=== PATIENT | male | born 1965 | race Caucasian/White ===

== ENCOUNTER 2018-03-30 11:30 | Inpatient (IN) | payer OTHER ==
[2018-03-30 11:55] VITALS: BMI 28.3
--- NOTE | 2018-03-30 15:25 | HP ---
CIWA Score - CIWA Score Nausea/Vomitin-Int. Nausea w/Dry Heave Muscle Tremors: 7-Severe,w/o Arm Extended Anxiety: 4-Mod. Anxious/Guarded Agitation: 4-Moderately Restless Paroxysmal Sweats: 4-Forehead w/Sweat Beads Orientation: 0-Oriented Tacttile Disturbances: 0-None Auditory Disturbances: 0-None Visual Disturbances: 0-None Headache: 2-Mild CIWA-Ar Total Score: 25 Admission ROS S - HPI Chief Complaint: Here for alcohol withdrawal. Allergies/Adverse Reactions: Allergies Allergy/AdvReac Type Severity Reaction Status Date / Time No Known Allergies Allergy Verified 03/30/18 12:53 History of Present Illness: Alcohol use began at age 16. States tried detoxing at home and was taking illicit benzo to assist in detox. Denies usually taking benzos. Hx blackouts. unsure if ever had seizures. Longest period of sobriety was 14 months, which ended in July 2017. Denies significant PMH. Hx depression and on meds. Denies thoughts of harming self. Search Terms: Josue Silva, 1965 Search Date: 03/30/2018 03:17:40 PM The Drug Utilization Report below displays all of the controlled substance prescriptions, if any, that your patient has filled in the last twelve months. The information displayed on this report is compiled from pharmacy submissions to the Department, and accurately reflects the information as submitted by the pharmacies. This report was requested by: Kallie Astorga | Reference #: [id number] There are no results for the search terms that you entered. Exam Limitations: No Limitations - Ebola screening Have you traveled outside of the country in the last 21 days: No (N) Have you had contact with anyone from an Ebola affected area: No Have you been sick,other than usual withdrawal symptoms: No Do you have a fever: No - Review of Systems Constitutional: Diaphoresis, Changes in sleep (Difficulty staying asleep) EENT: reports: Dental Problems (No removable bridge. No problems chewing.) Respiratory: reports: Cough (States smoker's cough. Denies difficulty breathing or SOB.), Other (Hx PPD (+). No medication treatment) Cardiac: reports: No Symptoms Reported GI: reports: Diarrhea (Soft and watery diarrhea x 1 week.), Nausea, Other (Has been drinking and not eating) : reports: No Symptoms Reported Musculoskeletal: reports: No Symptoms Reported Integumentary: reports: Erythema (3 red patches (L) chest x 2 weeks. No itching) Neuro: reports: Headache, Tremors Endocrine: reports: No Symptoms Reported Hematology: reports: No Symptoms Reported Psychiatric: reports: Judgement Intact, Orientated x3, Agitated, Anxious, Depressed (Denies thoughts of harming self or others.) Patient History - Patient Medical History Hx Anemia: No Hx Asthma: No Hx Chronic Obstructive Pulmonary Disease (COPD): No Hx Cardiac Disorders: No Hx Congestive Heart Failure: No Hx Hypertension: No Hx Hypercholesterolemia: No Hx Pacemaker: No HX Cerebrovascular Accident: No Hx Seizures: No (does not recollect having a seizure) Hx Dementia: No Hx Diabetes: No Hx Gastrointestinal Disorders: No Hx Liver Disease: No Hx Genitourinary Disorders: No Hx Sexually Transmitted Disorders: No Hx Renal Disease (ESRD): No Hx Thyroid Disease: No Hx Human Immunodeficiency Virus (HIV): No Hx Hepatitis C: No Hx Depression: Yes Hx Suicide Attempt: No Hx Bipolar Disorder: No Hx Schizophrenia: No - Patient Surgical History Past Surgical History: Yes Hx Neurologic Surgery: No Hx Cataract Extraction: No Hx Cardiac Surgery: No Hx Lung Surgery: Yes (chest tube/left pneumothorax at age 17) Hx Breast Surgery: No Hx Breast Biopsy: No Hx Abdominal Surgery: No Hx Appendectomy: No Hx Cholecystectomy: No Hx Genitourinary Surgery: No Hx Section: Yes (fx, right ankle in 2011/left ankle in 2004) Hx Orthopedic Surgery: No Anesthesia Reaction: No - PPD History Documented Results: Positive w/o proof - Smoking Cessation Smoking history: Current every day smoker Have you smoked in the past 12 months: Yes Aproximately how many cigarettes per day: 20 Cigars Per Day: 0 Hx Chewing Tobacco Use: No Initiated information on smoking cessation: Yes 'Breaking Loose' booklet given: 03/30/18 - Substance & Tx. History Hx Alcohol Use: Yes Hx Substance Use: Yes Substance Use Type: Alcohol Hx Substance Use Treatment: Yes (several detoxes and residential programs) - Substances Abused Alcohol Route: Oral Frequency: Daily Amount used: 1 quart of vodka, 1 case of beers 12 ouces Age of first use: 16 Date of Last Use: 03/30/18 Marijuana/Hashish Route: Smoking Frequency: Daily Amount used: $10 Age of first use: 16 Date of Last Use: 03/29/18 Alprazolam (Xanax) Route: Oral Frequency: 1-3 times last 30 days Amount used: 0.5mg Age of first use: 53 (Only used last 2 weeks) Date of Last Use: 03/29/18 Family Disease History - Family Disease History Family Disease History: Respiratory: Mother (copd - ), Other: Brother ( htn, etoh dep. ) Admission Physical Exam [facility] - Vital Signs Vital Signs: Vital Signs - 24 hr 03/30/18 11:54 Temperature 97.4 F L Pulse Rate 104 H Respiratory 19 Rate Blood Pressure 137/91 - Physical General Appearance: Yes: Mild Distress, Tremorous, Irritable, Sweating, Anxious HEENTM: Yes: EOMI, Normocephalic, Normal Voice, JORGE Respiratory: Yes: Chest Non-Tender, Lungs Clear, Normal Breath Sounds Neck: Yes: No masses,lesions,Nodules, Supple Breast: Yes: Breast Exam Deferred Cardiology: Yes: Regular Rhythm, S1, S2, Tachycardia Abdominal: Yes: Non Tender, Soft, Increased Bowel Sounds Genitourinary: Yes: Within Normal Limits Back: Yes: Normal Inspection Musculoskeletal: Yes: full range of Motion, Gait Steady Extremities: Yes: Normal Capillary Refill, Non-Tender, Tremors (gross tremors of hands at rest and increases w/ extension), Other (Old surgical scar (R) ankle.) 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, Fully Oriented, Alert, Motor Strength 5/5 Integumentary: Yes: Rash (Group of 3 elevated, irregular shaped erythematous lesions at (L) lower breast/chest area total size approx 3") Lymphatic: Yes: Within Normal Limits - Diagnostic (1) Alcohol dependence with uncomplicated withdrawal Current Visit: Yes Status: Acute (2) Nicotine dependence Current Visit: Yes Status: Chronic Qualifiers: Nicotine product type: cigarettes Substance use status: uncomplicated Qualified Code(s): F17.210 - Nicotine dependence, cigarettes, uncomplicated (3) Fungal rash of torso Current Visit: Yes Status: Acute Cleared for Admission [facility] - Detox or Rehab [facility] Level of Care: Medically Managed Detox Regimen/Protocol: Librium S Breath Alcohol Content Breath Alcohol Content: 0.097 Urine Drug Screen - Results Drug Screen Negative: No Urine Drug Screen Results: BZO-Benzodiazepines
[2018-03-30] MEDS ORDERED: P-EPHED 60MG/TRIPROLIDI 2.5MG TABLET PO PRN (16:02)
[2018-03-30] MEDS ORDERED: chlordiazePOXIDE HCL 25 MG CAPSULE PO PRN (16:02)
[2018-03-30] MEDS ORDERED: guaiFENesin/D-METHORPHAN HB 10 ML UNIT-DOSE CUPS PO PRN (16:02)
[2018-03-30] MEDS ORDERED: MENTHOL/PHENOL 1 EACH UD MM PRN (16:02)
[2018-03-30] MEDS ORDERED: NICOTINE POLACRILEX 2 MG GUM BC PRN (16:02)
[2018-03-30] MEDS ORDERED: ACETAMINOPHEN 325 MG TABLET (FP) PO PRN (16:02)
[2018-03-30] MEDS ORDERED: MAG HYDROX/AL HYDROX/SIMETH 30 ML UNIT-DOSE CUP PO PRN (16:02)
[2018-03-30] MEDS ORDERED: hydrOXYzine PAMOATE 50 MG CAPSULE (FP) PO PRN (16:02)
[2018-03-30] MEDS ORDERED: MAGNESIUM HYDROX 2400MG/30ML ORAL SUSPENSION 30 ML CUP PO PRN (16:02)
[2018-03-30] MEDS ORDERED: MAGNESIUM CITRATE 300 ML BOTTLE PO PRN (16:02)
[2018-03-30] MEDS ORDERED: LOPERAMIDE HCL 2 MG CAPSULE PO PRN (16:02)
[2018-03-30] MEDS ORDERED: IBUPROFEN 400 MG TABLET (FP) PO PRN (16:02)
[2018-03-30] MEDS ORDERED: chlordiazePOXIDE HCL 25 MG CAPSULE PO ONE (16:30)
[2018-03-30] MEDS: chlordiazePOXIDE HCL 25 MG CAPSULE PO SCH ×2 (17:45→22:20)
[2018-03-30] MEDS: NICOTINE 21 MG/24 HOURS TOPICAL PATCH TD SCH (17:45)
[2018-03-30 21:25] LABS: URINE APPEARANCE CLEAR; URINE BILIRUBIN NEGATIVE (<2.0 mg/dL); URINE COLOR STRAW; URINE GLUCOSE (UA) NEGATIVE (NEGATIVE); URINE KETONE NEGATIVE (NEGATIVE); URINE LEUK ESTERASE NEGATIVE (NEGATIVE); URINE NITRITE NEGATIVE (NEGATIVE); URINE PROTEIN NEGATIVE (NEGATIVE); URINE UROBILINOGEN NEGATIVE mg/dL (0.2-1.0)
[2018-03-30] MEDS ORDERED: MELATONIN 5 MG TABLETS PO PRN (22:00)
[2018-03-30] MEDS: CLOTRIMAZOLE 1% CREAM 15 GM TUBE TP SCH (22:17)
[2018-03-30] MEDS: THIAMINE HCL 100 MG TABLET (FP) PO SCH (22:19)
[2018-03-31] MEDS: chlordiazePOXIDE HCL 25 MG CAPSULE PO SCH ×4 (05:53→22:40)
--- NOTE | 2018-03-31 08:56 | CONSULT ---
[facility] Psychiatric Consult - Data Date of interview: 03/31/18 Admission source: [facility] Identifying data: Patient is a 53 year old single male, father of three, unemployed, and domiciled. This is one of multiple admissions for patient. Pt. admitted to for alcohol dependence. Substance Abuse History: Smoking Cessation. Smoking history: Current every day smoker. Have you smoked in the past 12 months: Yes. Aproximately how many cigarettes per day: 20. Cigars Per Day: 0. Hx Chewing Tobacco Use: No. Initiated information on smoking cessation: Yes. 'Breaking Loose' booklet given : 03/30/18. - Substance & Tx. History. Hx Alcohol Use: Yes. Hx Substance Use : Yes. Substance Use Type: Alcohol. Hx Substance Use Treatment: Yes (several detoxes and residential programs). - Substances Abused. Alcohol. Route: Oral. Frequency: Daily. Amount used: 1 quart of vodka, 1 case of beers 12 ouces. Age of first use: 16. Date of Last Use: 03/30/18. Marijuana/ Hashish. Route: Smoking. Frequency: Daily. Amount used: $10. Age of first use: 16. Date of Last Use: 03/29/18. Alprazolam (Xanax). Route: Oral. Frequency: 1-3 times last 30 days. Amount used: 0.5mg. Age of first use: 53 ( Only used last 2 weeks). Date of Last Use: 03/29/18 Medical History: chest tube/left pneumothorax at age 17, fx, right ankle in 2011 /left ankle in 2004 Psychiatric History: Patient denies h/o psychiatric hospitalization. He was provided psychiatric services at [facility] rehab in 2015 and was prescribed prozac + trazodone. Upon discharge at [facility] patient was accepting prozac 60mg + trazodoe 100mg qhs. In 2017, Patient was receiving outpatient psychiatric services on [facility] in [place], [place] and was maintained on prozac 60mg + trazodone 100mg. Pt currently receives his psychotrophic medications from his PCP. Reports most recently taking prozac 40mg (reduce dosage due to limited pills) and has been compliant with trazodone 100mg. Pt. denies h/o suicide attempt. Physical/Sexual Abuse/Trauma History: denies. Mental Status Exam - Mental Status Exam Alert and Oriented to: Time, Place, Person Cognitive Function: Good Patient Appearance: Well Groomed Mood: Euthymic Affect: Appropriate Patient Behavior: Appropriate, Cooperative Speech Pattern: Appropriate Voice Loudness: Normal Thought Process: Intact, Goal Oriented Thought Disorder: Not Present Hallucinations: Denies Suicidal Ideation: Denies Homicidal Ideation: Denies Insight/Judgement: Poor Sleep: Poorly Appetite: Fair Muscle strength/Tone: Normal Gait/Station: Normal Psychiatric Findings - Problem List ([place] 1, 2,3) (1) Alcohol dependence with uncomplicated withdrawal Status: Acute (2) Nicotine dependence Status: Chronic Qualifiers: Nicotine product type: cigarettes Substance use status: in withdrawal Qualified Code(s): F17.213 - Nicotine dependence, cigarettes, with withdrawal (3) Substance induced mood disorder Status: Acute (4) Substance-induced sleep disorder Status: Acute - Initial Treatment Plan Initial Treatment Plan: Psychoeducation provided. Detoxification in progress. Will order prozac 40mg + trazodone 100mg qhs. Benefits and side effects discussed. Pt. made aware of the risk of priapism when accepting trazodone. Verbal consent given.
[2018-03-31 09:48] LABS: HEMATOCRIT 46.6 % (35.4-49); HEMOGLOBIN 15.1 GM/dL (11.7-16.9); MCH 30.8 pg (25.7-33.7); MCHC 32.3 g/dl (32.0-35.9); MEAN CELL VOLUME 95.2 fl (80-96); MEAN PLT VOLUME 8.9 fl (7.5-11.1); PLATELET COUNT 153 K/MM3 (134-434); RBC 4.89 M/mm3 (4.00-5.60); RDW 14.7 % (11.9-15.9); WHITE BLOOD COUNT 11.2 K/mm3 (4.0-10.0)
[2018-03-31 09:59] LABS: BLOOD UREA NITROGEN 5 mg/dL (7-18); CHLORIDE 103 mmol/L (98-107); SODIUM 142 mmol/L (136-145)
[2018-03-31] MEDS ORDERED: PRENATAL VITAMINS W/ FOLIC ACID TABLET (FP) PO SCH (10:00)
[2018-03-31] MEDS ORDERED: FLUoxetine HCL 20 MG CAPSULE (FP) PO SCH (10:00)
[2018-03-31 10:04] LABS: ALBUMIN 2.6 g/dl (3.4-5.0); ALK PHOS 73 U/L (45-117); ANION GAP 11 MMOL/L (8-16); BILIRUBIN,TOTAL 0.8 mg/dL (0.2-1.0); CALCIUM 8.2 mg/dL (8.5-10.1); CO2 28 mmol/L (21-32); CREATININE 0.7 mg/dL (0.7-1.3); GLUCOSE,RANDOM 92 mg/dL (74-106); SGOT/AST 33 U/L (15-37); SGPT/ALT 30 U/L (12-78); TOT PROT 5.7 g/dl (6.4-8.2)
[2018-03-31] MEDS: NICOTINE 21 MG/24 HOURS TOPICAL PATCH TD SCH (10:18)
[2018-03-31] MEDS: CLOTRIMAZOLE 1% CREAM 15 GM TUBE TP SCH ×2 (10:19→22:35)
--- NOTE | 2018-03-31 10:57 | PN ---
S CIWA - CIWA Score Nausea/Vomitin-No Nausea/No Vomiting Muscle Tremors: 4-Moderate,w/Arms Extend Anxiety: 4-Mod. Anxious/Guarded Agitation: 4-Moderately Restless Paroxysmal Sweats: 1-Minimal Palms Moist Orientation: 0-Oriented Tacttile Disturbances: 0-None Auditory Disturbances: 0-None Visual Disturbances: 0-None Headache: 0-None Present CIWA-Ar Total Score: 13 [facility] Progress Note (SOAP) Subjective: C/O SWEATS,TREMORS,FATIGUE. Objective: 03/31/18 10:56 Vital Signs 03/31/18 03/31/18 03/31/18 03:30 06:04 09:10 Temperature 97.7 F 97.5 F L Pulse Rate 79 111 H Respiratory 18 18 20 Rate Blood Pressure 134/78 126/93 Laboratory Tests 03/30/18 03/31/18 03/31/18 16:47 07:30 07:30 WBC 11.2 H RBC 4.89 Hgb 15.1 Hct 46.6 MCV 95.2 MCH 30.8 MCHC 32.3 RDW 14.7 Plt Count 153 D MPV 8.9 Sodium 142 Potassium 3.0 L Chloride 103 Carbon Dioxide 28 Anion Gap 11 BUN 5 L Creatinine 0.7 Creat Clearance w eGFR > 60 Random Glucose 92 Calcium 8.2 L Total Bilirubin 0.8 AST 33 D ALT 30 D Alkaline Phosphatase 73 Total Protein 5.7 L Albumin 2.6 L Urine Color Straw Urine Appearance Clear Urine pH 6.0 D Ur Specific Dequincy 1.001 Urine Protein Negative Urine Glucose (UA) Negative Urine Ketones Negative Urine Blood Negative Urine Nitrite Negative Urine Bilirubin Negative Urine Urobilinogen Negative Ur Leukocyte Esterase Negative K+ = 3.0 Assessment: 03/31/18 10:56 WITHDRAWAL SX HYPOKALEMIA Plan: CONTINUE DETOX KCL LIQ 20 MEQ PO NOW, THEN BID
[2018-03-31] MEDS ORDERED: POTASSIUM CHLORIDE ORAL LIQUID 20 MEQ/15 ML PO ONE (11:01)
--- NOTE | 2018-03-31 14:17 | EKG ---
Test Reason : Blood Pressure : / mmHG Vent. Rate : 106 BPM Atrial Rate : 106 BPM P-R Int : 146 ms QRS Dur : 082 ms QT Int : 350 ms P-R-T Axes : 058 045 047 degrees QTc Int : 464 ms POOR DATA QUALITY, INTERPRETATION MAY BE ADVERSELY AFFECTED SINUS TACHYCARDIA OTHERWISE NORMAL ECG NO PREVIOUS ECGS AVAILABLE Confirmed by ANDRY JOHNS MD ([id number]) on 03/31/2018 2:17:36 PM Referred By: Confirmed By:ANDRY JOHNS MD
[2018-03-31 17:24] VITALS: BP 124/72; PULSE 86; TEMP 97
--- NOTE | 2018-03-31 18:40 | PN ---
[facility] Progress Note Note: Patient bowel movement w/ expulsion of bright red blood and large amount of blood clots. Denies hx of past bleeding. Abdomen soft and non-tender. Bowel sounds (+). Patient continues w/ severe tremors. Denies significant PMH. Hx. depression. Dr. Wall, at [facility], notified of patient being sent via ambulance. Vital Signs - 24 hr 03/30/18 03/31/18 03/31/18 21:34 00:30 03:30 Temperature 100.7 F H Pulse Rate 119 H Respiratory 20 18 18 Rate Blood Pressure 148/97 03/31/18 03/31/18 03/31/18 06:04 09:10 13:11 Temperature 97.7 F 97.5 F L 98.3 F Pulse Rate 79 111 H 105 H Respiratory 18 20 20 Rate Blood Pressure 134/78 126/93 138/90 03/31/18 17:23 Temperature 97 F L Pulse Rate 86 Respiratory 18 Rate Blood Pressure 124/72 Current Medications Generic Name Dose Route Start Last Admin Trade Name Freq PRN Reason Stop Dose Admin Acetaminophen 650 mg 03/30/18 16:02 03/30/18 22:18 Tylenol - PO 650 mg Q4H PRN Administration FEVER Al Hydroxide/Mg Hydroxide 30 ml 03/30/18 16:02 Mylanta Oral Suspension - PO Q6H PRN DYSPEPSIA Chlordiazepoxide HCl 25 mg 03/31/18 17:00 03/31/18 17:47 Librium - PO 04/01/18 11:01 25 mg [id number] TENISHA Administration Chlordiazepoxide HCl 15 mg 04/01/18 17:00 Librium - PO 04/02/18 11:01 [id number] TENISHA Chlordiazepoxide HCl 25 mg 03/30/18 16:02 Librium - PO 04/02/18 16:01 Q4H PRN WITHDRAWAL(CONT SUBST) Chlordiazepoxide HCl 10 mg 04/02/18 17:00 Librium - PO 04/03/18 11:01 [id number] TENISHA Clotrimazole 1 applic 03/30/18 22:00 03/31/18 10:19 Lotrimin 1% Cream - TP Not Given BID TENISHA Eucalyptus/Menthol/Phenol/Sorbitol 1 each 03/30/18 16:02 Cepastat Lozenge - MM Q4H PRN SORE THROAT Fluoxetine HCl 40 mg 03/31/18 10:00 03/31/18 10:20 Prozac - PO 40 mg DAILY TENISHA Administration Guaifenesin 10 ml 03/30/18 16:02 Robitussin Dm - PO Q6H PRN COUGH Hydroxyzine Pamoate 50 mg 03/30/18 16:02 Vistaril - PO Q4H PRN AGITATION Ibuprofen 400 mg 03/30/18 16:02 Motrin - PO Q6H PRN PAIN LEVEL 4-6 Loperamide HCl 4 mg 03/30/18 16:02 03/31/18 10:20 Imodium - PO 4 mg Q6H PRN Administration DIARRHEA Magnesium Citrate 300 ml 03/30/18 16:02 Citroma - PO Q48H PRN CONSTIPATION Magnesium Hydroxide 30 ml 03/30/18 16:02 Milk Of Magnesia - PO DAILY PRN CONSTIPATION Melatonin 5 mg 03/30/18 22:00 Melatonin PO HS PRN INSOMNIA Nicotine 21 mg 03/30/18 16:30 03/31/18 10:18 Nicoderm Patch - TD 21 mg DAILY [facility] Administration Nicotine Polacrilex 2 mg 03/30/18 16:02 Nicorette Gum - BC Q2H PRN NICOTINE REPLACEMENT RX Potassium Chloride 20 meq 03/31/18 22:00 Potassium Chloride Oral Liquid PO BID [facility] Multivit/Folic Acid/Iron 1 tab 03/31/18 10:00 03/31/18 10:18 Vitamins (Sjr) - PO 1 tab DAILY TENISHA Administration Pseudoephedrine/Triprolidine 1 combo 03/30/18 16:02 Actifed - PO TID PRN NASAL CONGESTION Thiamine HCl 100 mg 03/30/18 22:00 03/30/18 22:19 Vitamin B1 - PO 100 mg HS TENISHA Administration Trazodone HCl 100 mg 03/31/18 22:00 Desyrel - PO HS [facility]
[2018-03-31] MEDS ORDERED: traZODone HCL 100 MG TABLET (FP) PO SCH (22:00)
[2018-03-31] MEDS ORDERED: POTASSIUM CHLORIDE ORAL LIQUID 20 MEQ/15 ML PO SCH (22:00)
[2018-03-31] MEDS: THIAMINE HCL 100 MG TABLET (FP) PO SCH (22:37)
[2018-04-01] MEDS ORDERED: chlordiazePOXIDE 5 MG CAPSULE PO SCH (17:00)
[2018-04-02] MEDS ORDERED: chlordiazePOXIDE HCL 10 MG CAPSULE PO SCH (17:00)
== END 2018-03-31 11:59 | disposition short-term general hospital (02) | DRG 775 ==
LOC: YASAS 11:30 → Y3N 16:22
PROC: HZ2ZZZZ Detoxification Services for Substance Abuse Treatment (ICD-10-PCS; principal; 2018-03-30)
DX: F10.230 Alcohol dependence with withdrawal, uncomplicated (principal); F13.10 Sedative, hypnotic or anxiolytic abuse, uncomplicated; F17.213 Nicotine dependence, cigarettes, with withdrawal; F19.24 Other psychoactive substance dependence with psychoactive substance-induced mood disorder; F19.282 Other psychoactive substance dependence with psychoactive substance-induced sleep disorder; K62.5 Hemorrhage of anus and rectum; E87.6 Hypokalemia; B48.8 Other specified mycoses
CPT/HCPCS: 36415; 71046-TC-FY; 80053; 81003; 85027; 86593; 87389; 93005; 93010

== ENCOUNTER 2018-06-08 19:25 | Inpatient (IN) | payer OTHER ==
--- NOTE | 2018-06-08 20:50 | HP ---
CIWA Score Nausea/Vomitin Muscle Tremors: 4-Moderate,w/Arms Extend Anxiety: 3 Agitation: 2 Paroxysmal Sweats: 1-Minimal Palms Moist Orientation: 0-Oriented Tacttile Disturbances: 1-Very Mild Itch/Numbness (right hand) Auditory Disturbances: 0-None Visual Disturbances: 0-None Headache: 3-Moderate CIWA-Ar Total Score: 16 - Admission Criteria [facility] Guidelines: Admission for Medically Managed Detox: Requires at least one of the followin. CIWA greater than 12 2. Seizures within the past 24 hours 3. Delirium tremens within the past 24 hours 4. Hallucinations within the past 24 hours 5. Acute intervention needed for co occurring medical disorder 6. Acute intervention needed for co occurring psychiatric disorder 7. Severe withdrawal that cannot be handled at a lower level of care (continued vomiting, continued diarrhea, abnormal vital signs) requiring intravenous medication and/or fluids 8. Admission ROS [facility] Chief Complaint: Alcohol withdrawal symptoms Allergies/Adverse Reactions: Allergies Allergy/AdvReac Type Severity Reaction Status Date / Time No Known Allergies Allergy Verified 06/08/18 20:35 History of Present Illness: 53 years old male with a suzanne g history of alcohol dependence is seeking admission to detox. Patient has been in detox multiple times and reports 14 months of sobriety. He has medical history of depression. He denies suicide attempt and suicidal ideation at this time. NAZARIO is 0.256 Exam Limitations: Intoxication - Ebola screening Have you traveled outside of the country in the last 21 days: No (N) Have you had contact with anyone from an Ebola affected area: No Have you been sick,other than usual withdrawal symptoms: No Do you have a fever: No - Review of Systems Constitutional: Chills, Malaise EENT: reports: No Symptoms Reported Respiratory: reports: No Symptoms reported Cardiac: reports: No Symptoms Reported GI: reports: Poor Appetite, Poor Fluid Intake, Abdominal cramping : reports: No Symptoms Reported Musculoskeletal: reports: No Symptoms Reported Integumentary: reports: Dryness Neuro: reports: Headache, Tingling, Tremors Endocrine: reports: No Symptoms Reported Hematology: reports: No Symptoms Reported Psychiatric: reports: Mood/Affect Appropiate, Orientated x3, Anxious, Depressed Other Systems: Reviewed and Negative Patient History - Patient Medical History Hx Anemia: No Hx Asthma: No Hx Chronic Obstructive Pulmonary Disease (COPD): No Hx Cardiac Disorders: No Hx Congestive Heart Failure: No Hx Hypertension: No Hx Hypercholesterolemia: No Hx Pacemaker: No HX Cerebrovascular Accident: No Hx Seizures: No (Denies seizure activity ) Hx Dementia: No Hx Diabetes: No Hx Gastrointestinal Disorders: No Hx Liver Disease: No Hx Genitourinary Disorders: No Hx Sexually Transmitted Disorders: No Hx Renal Disease (ESRD): No Hx Thyroid Disease: No Hx Human Immunodeficiency Virus (HIV): No Hx Hepatitis C: No Hx Depression: Yes (Prozac) Hx Suicide Attempt: No (Denies suicide attempt and suicidal ideation at this time) Hx Bipolar Disorder: No Hx Schizophrenia: No - Patient Surgical History Past Surgical History: Yes Hx Neurologic Surgery: No Hx Cataract Extraction: No Hx Cardiac Surgery: No Hx Lung Surgery: Yes (chest tube/left pneumothorax at age 17) Hx Breast Surgery: No Hx Breast Biopsy: No Hx Abdominal Surgery: No Hx Appendectomy: No Hx Cholecystectomy: No Hx Genitourinary Surgery: No Hx Section: No Hx Orthopedic Surgery: Yes (fx, right ankle in 2011/left ankle in 2004) Anesthesia Reaction: No - PPD History Previous Implant?: Yes (PPD POSITIVE ) Documented Results: Positive w/o proof Implanted On Prior R Admission?: No PPD to be Administered?: No - Reproductive History Patient is a Female of Child Bearing Age (11 -55 yrs old): No (MALE) - Smoking Cessation Smoking history: Current every day smoker Have you smoked in the past 12 months: No Aproximately how many cigarettes per day: 20 Hx Chewing Tobacco Use: No Initiated information on smoking cessation: Yes 'Breaking Loose' booklet given: 06/08/18 - Substance & Tx. History Hx Alcohol Use: Yes Hx Substance Use: Yes Substance Use Type: Alcohol, Marijuana Hx Substance Use Treatment: Yes ([facility]) - Substances Abused Alcohol Route: Oral Frequency: Daily Amount used: BEER- 1 case, VODKA - 1 PINT Age of first use: 15 Date of Last Use: 06/08/18 Marijuana/Hashish Route: Smoking Frequency: Daily Amount used: 1 blunt Age of first use: 15 Date of Last Use: 06/07/18 Family Disease History - Family Disease History Family Disease History: Respiratory: Mother (copd - ), Other: Father ( : 82: [place]), Brother (htn, etoh dep. 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, 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 Integumentary: Yes: Warm Lymphatic: Yes: Within Normal Limits - Diagnostic (1) Depression Current Visit: Yes Status: Chronic Qualifiers: Depression Type: unspecified Qualified Code(s): F32.9 - Major depressive disorder, single episode, unspecified (2) Alcohol dependence with uncomplicated withdrawal Current Visit: Yes Status: Chronic (3) Nicotine dependence Current Visit: Yes Status: Chronic Qualifiers: Nicotine product type: cigarettes Substance use status: in withdrawal Qualified Code(s): F17.213 - Nicotine dependence, cigarettes, with withdrawal Cleared for Admission [facility] - Detox or Rehab [facility] Level of Care: Medically Managed Detox Regimen/Protocol: Librium [facility] Breath Alcohol Content Breath Alcohol Content: 0.097
[2018-06-08 20:53] VITALS: BMI 27.2
[2018-06-08] MEDS ORDERED: MELATONIN 5 MG TABLETS PO PRN (22:00)
[2018-06-08] MEDS ORDERED: MENTHOL/PHENOL 1 EACH UD MM PRN (23:49)
[2018-06-08] MEDS ORDERED: IBUPROFEN 400 MG TABLET (FP) PO PRN (23:49)
[2018-06-08] MEDS ORDERED: P-EPHED 60MG/TRIPROLIDI 2.5MG TABLET PO PRN (23:49)
[2018-06-08] MEDS ORDERED: NICOTINE POLACRILEX 2 MG GUM BC PRN (23:49)
[2018-06-08] MEDS ORDERED: MAGNESIUM CITRATE 300 ML BOTTLE PO PRN (23:49)
[2018-06-08] MEDS ORDERED: guaiFENesin/D-METHORPHAN HB 10 ML UNIT-DOSE CUPS PO PRN (23:49)
[2018-06-08] MEDS ORDERED: ACETAMINOPHEN 325 MG TABLET (FP) PO PRN (23:49)
[2018-06-08] MEDS ORDERED: MAGNESIUM HYDROX 2400MG/30ML ORAL SUSPENSION 30 ML CUP PO PRN (23:49)
[2018-06-08] MEDS ORDERED: MAG HYDROX/AL HYDROX/SIMETH 30 ML UNIT-DOSE CUP PO PRN (23:49)
[2018-06-09] MEDS: chlordiazePOXIDE HCL 25 MG CAPSULE PO SCH ×5 (00:01→22:19)
[2018-06-09 10:25] LABS: HEMATOCRIT 48.3 % (35.4-49); HEMOGLOBIN 15.7 GM/dL (11.7-16.9); MCH 30.1 pg (25.7-33.7); MCHC 32.6 g/dl (32.0-35.9); MEAN CELL VOLUME 92.3 fl (80-96); MEAN PLT VOLUME 8.4 fl (7.5-11.1); PLATELET COUNT 121 K/MM3 (134-434); RBC 5.23 M/mm3 (4.00-5.60); RDW 14.5 % (11.9-15.9)
[2018-06-09] MEDS: PRENATAL VITAMINS W/ FOLIC ACID TABLET (FP) PO SCH (10:32)
[2018-06-09] MEDS: NICOTINE 14 MG/24 HOURS TOPICAL PATCH TD SCH (10:32)
[2018-06-09 10:43] LABS: ALBUMIN 3.6 g/dl (3.4-5.0); ALK PHOS 67 U/L (45-117); ANION GAP 8 MMOL/L (8-16); BILIRUBIN,TOTAL 0.8 mg/dL (0.2-1); BLOOD UREA NITROGEN 5 mg/dL (7-18); CALCIUM 7.8 mg/dL (8.5-10.1); CHLORIDE 104 mmol/L (98-107); CO2 29 mmol/L (21-32); CREATININE 0.7 mg/dL (0.55-1.3); GLUCOSE,RANDOM 79 mg/dL (74-106); POTASSIUM 3.6 mmol/L (3.5-5.1); SGOT/AST 124 U/L (15-37); SGPT/ALT 92 U/L (13-61); SODIUM 141 mmol/L (136-145); TOT PROT 6.5 g/dl (6.4-8.2)
--- NOTE | 2018-06-09 10:51 | EKG ---
Test Reason : Blood Pressure : / mmHG Vent. Rate : 087 BPM Atrial Rate : 087 BPM P-R Int : 150 ms QRS Dur : 084 ms QT Int : 374 ms P-R-T Axes : 059 038 043 degrees QTc Int : 450 ms NORMAL SINUS RHYTHM NORMAL ECG WHEN COMPARED WITH ECG OF 31-MAR-2018 20:37, NO SIGNIFICANT CHANGE WAS FOUND Confirmed by ABIGAIL CALDERÓN MD ([id number]) on 06/09/2018 10:50:58 AM Referred By: Confirmed By:ABIGAIL CALDERÓN MD
[2018-06-09] MEDS: chlordiazePOXIDE HCL 25 MG CAPSULE PO PRN (13:49)
--- NOTE | 2018-06-09 18:30 | PN ---
[facility] CIWA - CIWA Score Nausea/Vomitin-Mild Nausea/No Vomiting Muscle Tremors: 3 Anxiety: 3 Agitation: 3 Paroxysmal Sweats: 3 Orientation: 0-Oriented Tacttile Disturbances: 0-None Auditory Disturbances: 0-None Visual Disturbances: 0-None Headache: 0-None Present CIWA-Ar Total Score: 13 S Progress Note (SOAP) Subjective: sweats interrupted sleep shakes Objective: 06/09/18 18:29 A & O x 3 Vital Signs Temperature 98.0 F 06/09/18 18:14 Pulse Rate 88 06/09/18 18:14 Respiratory Rate 18 06/09/18 18:14 Blood Pressure 136/84 06/09/18 18:14 O2 Sat by Pulse Oximetry (%) Laboratory Last Values WBC 7.0 K/mm3 (4.0-10.0) 06/09/18 07:00 RBC 5.23 M/mm3 (4.00-5.60) 06/09/18 07:00 Hgb 15.7 GM/dL (11.7-16.9) 06/09/18 07:00 Hct 48.3 % (35.4-49) 06/09/18 07:00 MCV 92.3 fl (80-96) 06/09/18 07:00 MCH 30.1 pg (25.7-33.7) 06/09/18 07:00 MCHC 32.6 g/dl (32.0-35.9) 06/09/18 07:00 RDW 14.5 % (11.9-15.9) 06/09/18 07:00 Plt Count 121 K/MM3 (134-434) L D 06/09/18 07:00 MPV 8.4 fl (7.5-11.1) 06/09/18 07:00 Sodium 141 mmol/L (136-145) 06/09/18 07:00 Potassium 3.6 mmol/L (3.5-5.1) 06/09/18 07:00 Chloride 104 mmol/L (98-107) 06/09/18 07:00 Carbon Dioxide 29 mmol/L (21-32) 06/09/18 07:00 Anion Gap 8 MMOL/L (8-16) 06/09/18 07:00 BUN 5 mg/dL (7-18) L 06/09/18 07:00 Creatinine 0.7 mg/dL (0.55-1.3) 06/09/18 07:00 Creat Clearance w eGFR > 60 (>60) 06/09/18 07:00 Random Glucose 79 mg/dL (74-106) 06/09/18 07:00 Calcium 7.8 mg/dL (8.5-10.1) L 06/09/18 07:00 Total Bilirubin 0.8 mg/dL (0.2-1) 06/09/18 07:00 AST 124 U/L (15-37) H 06/09/18 07:00 ALT 92 U/L (13-61) H 06/09/18 07:00 Alkaline Phosphatase 67 U/L (45-117) 06/09/18 07:00 Total Protein 6.5 g/dl (6.4-8.2) 06/09/18 07:00 Albumin 3.6 g/dl (3.4-5.0) 06/09/18 07:00 RPR Titer Nonreactive (NONREACTIVE) 06/09/18 07:00 labs noted, pending [facility] Assessment: 06/09/18 18:31 withdrawal sx Elevated Liver enzymes Plan: continue detox [facility] in a,m
--- NOTE | 2018-06-09 18:33 | CONSULT ---
[facility] Psychiatric Consult - Data Date of interview: 06/09/18 Admission source: [facility] Identifying data: Readmission to [facility] for this 53 y/o male seeking detoxification treatment , on , for alcohol and cannabis dependence. 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 Substance Abuse History: Confirmed by the patient in this interview. Details in current [facility] report : Smoking history: Current every day smoker. Have you smoked in the past 12 months: No. Aproximately how many cigarettes per day: 20. Hx Chewing Tobacco Use: No. Initiated information on smoking cessation: Yes. 'Breaking Loose' booklet given: 06/08/18. - Substance & Tx. History. Hx Alcohol Use: Yes. Hx Substance Use: Yes. Substance Use Type: Alcohol, Marijuana. Hx Substance Use Treatment: Yes ([facility]). - Substances Abused. Alcohol. Route: Oral. Frequency: Daily. Amount used: BEER- 1 case, VODKA - 1 PINT. Age of first use: 15. Date of Last Use: 06/08/18. Marijuana/ Hashish. Route: Smoking. Frequency: Daily. Amount used: 1 blunt. Age of first use: 15. Date of Last Use: 06/07/18 Medical History: Patient endorses good general health. Noted distant history of pneumothorax (age 17) and orthosurgery for fracture of right ankle (2011) + left ankle (2004). Psychiatric History: No reported history of psychiatric hospitalizations. Patient reports that he has received the diagnosis of MDD in 2016 during rehabilitation treatment at [facility]. Continues to be prescribed prozac 60 mg/day + trazodone 100 mg/hs. NO formal psychiatric OPD care. Mr De Luna indicates that he gets these medications from his primary care physician. Patient denies history of suicide attempts. Physical/Sexual Abuse/Trauma History: Patient denies. Additional Comment: Toxicology not available on admission. Mental Status Exam - Mental Status Exam Alert and Oriented to: Time, Place, Person Cognitive Function: Good Patient Appearance: Unkempt, Disheveled Mood: Nervous, Withdrawn, Anxious Affect: Mood Congruent, Constricted Patient Behavior: Fatigued, Cooperative Speech Pattern: Clear Voice Loudness: Normal Thought Process: Goal Oriented Thought Disorder: Not Present Hallucinations: Denies Suicidal Ideation: Denies Homicidal Ideation: Denies Insight/Judgement: Poor Sleep: Poorly, Difficulty falling asleep Appetite: Good Muscle strength/Tone: Normal Gait/Station: Normal Psychiatric Findings - Problem List ([place] 1, 2,3) (1) Alcohol dependence with uncomplicated withdrawal Current Visit: Yes Status: Acute (2) Nicotine dependence Current Visit: Yes Status: Acute Qualifiers: Nicotine product type: cigarettes Substance use status: in withdrawal Qualified Code(s): F17.213 - Nicotine dependence, cigarettes, with withdrawal (3) Substance induced mood disorder Current Visit: Yes Status: Suspected (4) Depressive disorder Current Visit: Yes Status: Chronic Comment: As per self-report. (5) Insomnia Current Visit: Yes Status: Acute - Initial Treatment Plan Initial Treatment Plan: Psychoeducation. Sleep hygiene. Detoxification in progress. Motivational rounds. AA meetings. Medications : prozac 40 mg po daily + trazodone 100 mg po hs . Side effects/benefits of both drugs are discussed with the patient. Mr De Luna is informed of the risk of suicidal ideation, sexual impotence and priapism. Endorses no prior history of adverse effects from this regimen and he agrees to stay on trazone + prozac. Verbal consent : given to copywriter. Observation.
[2018-06-09] MEDS: traZODone HCL 100 MG TABLET (FP) PO SCH (22:19)
[2018-06-09] MEDS: THIAMINE HCL 100 MG TABLET (FP) PO SCH (22:19)
[2018-06-10] MEDS: chlordiazePOXIDE HCL 25 MG CAPSULE PO SCH ×3 (05:37→17:30)
[2018-06-10] MEDS: PRENATAL VITAMINS W/ FOLIC ACID TABLET (FP) PO SCH (10:46)
[2018-06-10] MEDS: FLUoxetine HCL 20 MG CAPSULE (FP) PO SCH (10:46)
[2018-06-10] MEDS: NICOTINE 14 MG/24 HOURS TOPICAL PATCH TD SCH (10:47)
[2018-06-10] MEDS: chlordiazePOXIDE HCL 25 MG CAPSULE PO PRN ×2 (11:46→15:51)
--- NOTE | 2018-06-10 12:02 | PN ---
S CIWA - CIWA Score Nausea/Vomitin-Mild Nausea/No Vomiting Muscle Tremors: 3 Anxiety: 3 Agitation: 3 Paroxysmal Sweats: No Perspiration Orientation: 0-Oriented Tacttile Disturbances: 0-None Auditory Disturbances: 0-None Visual Disturbances: 0-None Headache: 0-None Present CIWA-Ar Total Score: 10 [facility] Progress Note (SOAP) Subjective: PATIENT C/O TREMORS, MILD NAUSEA, ANXIETY/IRRITABILITY. Objective: 06/10/18 12:00 Vital Signs Temperature 97.2 F L 06/10/18 09:33 Pulse Rate 114 H 06/10/18 09:33 Respiratory Rate 18 06/10/18 09:33 Blood Pressure 118/73 06/10/18 09:33 O2 Sat by Pulse Oximetry (%) Laboratory Tests 06/09/18 06/09/18 06/09/18 07:00 07:00 07:00 WBC 7.0 RBC 5.23 Hgb 15.7 Hct 48.3 MCV 92.3 MCH 30.1 MCHC 32.6 RDW 14.5 Plt Count 121 L D MPV 8.4 Sodium 141 Potassium 3.6 Chloride 104 Carbon Dioxide 29 Anion Gap 8 BUN 5 L Creatinine 0.7 Creat Clearance w eGFR > 60 Random Glucose 79 Calcium 7.8 L Total Bilirubin 0.8 AST 124 H ALT 92 H Alkaline Phosphatase 67 Total Protein 6.5 Albumin 3.6 RPR Titer Nonreactive PE: ALERT AND ORIENTED SKIN WARM AND DRY CAR S1S2 RESP CTA BL EXT + TREMORS, FULL ROM ANXIOUS Assessment: 06/10/18 12:01 WITHDRAWAL SX Plan: CONTINUE DETOX ENCOURAGE ORAL FLUIDS CONTINUE TO MONITOR CLINICALLY
[2018-06-10 15:01] LABS: URINE APPEARANCE CLEAR; URINE BILIRUBIN NEGATIVE (<2.0 mg/dL); URINE COLOR YELLOW; URINE GLUCOSE (UA) NEGATIVE (NEGATIVE); URINE KETONE NEGATIVE (NEGATIVE); URINE LEUK ESTERASE NEGATIVE (NEGATIVE); URINE NITRITE NEGATIVE (NEGATIVE); URINE PROTEIN NEGATIVE (NEGATIVE)
[2018-06-10] MEDS: chlordiazePOXIDE 5 MG CAPSULE PO SCH (22:24)
[2018-06-10] MEDS: traZODone HCL 100 MG TABLET (FP) PO SCH (22:24)
[2018-06-10] MEDS: THIAMINE HCL 100 MG TABLET (FP) PO SCH (22:24)
[2018-06-11] MEDS: chlordiazePOXIDE 5 MG CAPSULE PO SCH ×3 (05:37→17:28)
[2018-06-11] MEDS: PRENATAL VITAMINS W/ FOLIC ACID TABLET (FP) PO SCH (10:59)
[2018-06-11] MEDS: FLUoxetine HCL 20 MG CAPSULE (FP) PO SCH (10:59)
[2018-06-11] MEDS: NICOTINE 14 MG/24 HOURS TOPICAL PATCH TD SCH (10:59)
--- NOTE | 2018-06-11 12:46 | PN ---
[facility] Progress Note Note: PATIENT CONTINUES WITH DETOX REGIMEN. PATIENT CONTINUES WITH TREMORS, DIARRHEA AND ANXIETY/RESTLESSNESS. Vital Signs Temperature 98.6 F 06/11/18 09:39 Pulse Rate 104 H 06/11/18 09:39 Respiratory Rate 20 06/11/18 09:39 Blood Pressure 121/72 06/11/18 09:39 O2 Sat by Pulse Oximetry (%) Laboratory Tests 06/09/18 06/09/18 06/09/18 07:00 07:00 07:00 WBC 7.0 RBC 5.23 Hgb 15.7 Hct 48.3 MCV 92.3 MCH 30.1 MCHC 32.6 RDW 14.5 Plt Count 121 L D MPV 8.4 Sodium 141 Potassium 3.6 Chloride 104 Carbon Dioxide 29 Anion Gap 8 BUN 5 L Creatinine 0.7 Creat Clearance w eGFR > 60 Random Glucose 79 Calcium 7.8 L Total Bilirubin 0.8 AST 124 H ALT 92 H Alkaline Phosphatase 67 Total Protein 6.5 Albumin 3.6 Urine Color Urine Appearance Urine pH Ur Specific [place] Urine Protein Urine Glucose (UA) Urine Ketones Urine Blood Urine Nitrite Urine Bilirubin Urine Urobilinogen Ur Leukocyte Esterase RPR Titer Nonreactive 06/10/18 12:35 WBC RBC Hgb Hct MCV MCH MCHC RDW Plt Count MPV Sodium Potassium Chloride Carbon Dioxide Anion Gap BUN Creatinine Creat Clearance w eGFR Random Glucose Calcium Total Bilirubin AST ALT Alkaline Phosphatase Total Protein Albumin Urine Color Yellow Urine Appearance Clear Urine pH 7.0 Ur Specific [place] 1.015 Urine Protein Negative Urine Glucose (UA) Negative Urine Ketones Negative Urine Blood Negative Urine Nitrite Negative Urine Bilirubin Negative Urine Urobilinogen 2.0 Ur Leukocyte Esterase Negative RPR Titer PE: ALERT AND ORIENTED X 3 SKIN WARM, +FACIAL FLUSHING CAR S1S2, SINUS TACHYCARDIA RESP CTA BL EXT +TREMORS AMB AD JOHAN A/P WITHDRAWAL SX CONTINUE DETOX REGIMEN ENCOURAGE ORAL FLUIDS SUPPORTIVE MEASURES IN PLACE CONTINUE TO MONITOR CLINICALLY
[2018-06-11] MEDS: chlordiazePOXIDE HCL 25 MG CAPSULE PO PRN (13:18)
[2018-06-11] MEDS: LOPERAMIDE HCL 2 MG CAPSULE PO PRN (15:17)
[2018-06-11] MEDS: traZODone HCL 100 MG TABLET (FP) PO SCH (22:14)
[2018-06-11] MEDS: THIAMINE HCL 100 MG TABLET (FP) PO SCH (22:14)
[2018-06-11] MEDS: chlordiazePOXIDE HCL 10 MG CAPSULE PO SCH (22:14)
[2018-06-12] MEDS: chlordiazePOXIDE HCL 10 MG CAPSULE PO SCH ×3 (05:40→18:12)
[2018-06-12] MEDS: FLUoxetine HCL 20 MG CAPSULE (FP) PO SCH (10:48)
[2018-06-12] MEDS: PRENATAL VITAMINS W/ FOLIC ACID TABLET (FP) PO SCH (10:48)
[2018-06-12] MEDS: NICOTINE 14 MG/24 HOURS TOPICAL PATCH TD SCH (10:49)
--- NOTE | 2018-06-12 11:11 | PN ---
S CIWA - CIWA Score Nausea/Vomitin Muscle Tremors: 1-None Visible, but [place] Anxiety: 0-No Anxiety, at Ease Agitation: 0-Normal Activity Paroxysmal Sweats: No Perspiration Orientation: 0-Oriented Tacttile Disturbances: 0-None Auditory Disturbances: 0-None Visual Disturbances: 0-None Headache: 0-None Present CIWA-Ar Total Score: 3 BHS Progress Note (SOAP) Subjective: PATIENT HAS INTERMITTENT DIARRHEA, AND MILD TREMORS. SYMPTOMS IMPROVED SINCE YESTERDAY PATIENT WAS HAVING ACTIVE WITHDRAWAL SYMPTOMS AND NOT CLEARED FOR D /C THIS MORNING TO CONTINUE MEDICAL OBSERVATION. Objective: 06/12/18 11:09 Vital Signs Temperature 97.1 F L 06/12/18 09:28 Pulse Rate 109 H 06/12/18 09:28 Respiratory Rate 20 06/12/18 09:28 Blood Pressure 108/73 06/12/18 09:28 O2 Sat by Pulse Oximetry (%) Laboratory Tests 06/09/18 06/09/18 06/09/18 07:00 07:00 07:00 WBC 7.0 RBC 5.23 Hgb 15.7 Hct 48.3 MCV 92.3 MCH 30.1 MCHC 32.6 RDW 14.5 Plt Count 121 L D MPV 8.4 Sodium 141 Potassium 3.6 Chloride 104 Carbon Dioxide 29 Anion Gap 8 BUN 5 L Creatinine 0.7 Creat Clearance w eGFR > 60 Random Glucose 79 Calcium 7.8 L Total Bilirubin 0.8 AST 124 H ALT 92 H Alkaline Phosphatase 67 Total Protein 6.5 Albumin 3.6 Urine Color Urine Appearance Urine pH Ur Specific [place] Urine Protein Urine Glucose (UA) Urine Ketones Urine Blood Urine Nitrite Urine Bilirubin Urine Urobilinogen Ur Leukocyte Esterase RPR Titer Nonreactive 06/10/18 12:35 WBC RBC Hgb Hct MCV MCH MCHC RDW Plt Count MPV Sodium Potassium Chloride Carbon Dioxide Anion Gap BUN Creatinine Creat Clearance w eGFR Random Glucose Calcium Total Bilirubin AST ALT Alkaline Phosphatase Total Protein Albumin Urine Color Yellow Urine Appearance Clear Urine pH 7.0 Ur Specific [place] 1.015 Urine Protein Negative Urine Glucose (UA) Negative Urine Ketones Negative Urine Blood Negative Urine Nitrite Negative Urine Bilirubin Negative Urine Urobilinogen 2.0 Ur Leukocyte Esterase Negative RPR Titer PE: SKIN WARM AND DRY CAR S1S2 RESP CTA BL EXT FULL ROM, MILD TREMORS FELT ALERT AND ORIENTED Assessment: 06/12/18 11:10 WITHDRAWAL SX Plan: CONTINUE CURRENT TREATMENT ENCOURAGE ORAL FLUIDS CONTINUE TO MONITOR CLINICALLY
[2018-06-12] MEDS: LOPERAMIDE HCL 2 MG CAPSULE PO PRN (18:14)
[2018-06-12] MEDS: traZODone HCL 100 MG TABLET (FP) PO SCH (22:20)
[2018-06-12] MEDS: THIAMINE HCL 100 MG TABLET (FP) PO SCH (22:20)
[2018-06-13 09:53] VITALS: BP 103/72; PULSE 111; TEMP 97.2
[2018-06-13] MEDS: NICOTINE 14 MG/24 HOURS TOPICAL PATCH TD SCH (10:10)
[2018-06-13] MEDS: FLUoxetine HCL 20 MG CAPSULE (FP) PO SCH (10:10)
[2018-06-13] MEDS: PRENATAL VITAMINS W/ FOLIC ACID TABLET (FP) PO SCH (10:10)
--- NOTE | 2018-06-13 12:35 | DS ---
[facility] Detox Discharge Summary Admission Date: 06/08/18 Discharge Date: 06/13/18 - History Present History: Alcohol Dependence - Physical Exam Results Vital Signs: Vital Signs Temperature 97.2 F L 06/13/18 09:51 Pulse Rate 111 H 06/13/18 09:51 Respiratory Rate 18 06/13/18 09:51 Blood Pressure 103/72 06/13/18 09:51 O2 Sat by Pulse Oximetry (%) Pertinent Admission Physical Exam Findings: PATIENT COMPLETED DETOX WITHOUT ADVERSE EVENT. PATIENT D/C MEDICALLY STABLE AND DENIES SI/HI. PATIENT D/C TO REHAB FACILITY IN [place], [place]. PATIENT ENCOURAGED TO COMPLETE REHAB TO PREVENT RELAPSE. D/C INSTRUCTIONS GIVEN TO PATIENT BY STAFF. - Treatment Hospital Course: Detox Protocol Followed, Detoxed Safely, Responded well, Discharged Condition Good, Rehab Referral Accepted Patient has Accepted a Rehab Referral to: REHAB FACILITY IN [place], [place] - Medication Discharge Medications: Ambulatory Orders Fluoxetine HCl [Prozac -] 60 mg PO DAILY 03/30/18 traZODone HCL [Trazodone HCl] 100 mg PO HS 03/30/18 Pantoprazole Sodium [Protonix] 40 mg PO DAILY #30 tablet. 04/03/18 - Diagnosis (1) Alcohol dependence with uncomplicated withdrawal Status: Resolved - AMA Did Patient Leave Against Medical Advice: No
== END 2018-06-13 11:24 | disposition home or self-care (01) | DRG 775 ==
LOC: YASAS 19:25 → Y3N 22:12
PROC: HZ2ZZZZ Detoxification Services for Substance Abuse Treatment (ICD-10-PCS; principal; 2018-06-08)
DX: F10.230 Alcohol dependence with withdrawal, uncomplicated (principal); F17.213 Nicotine dependence, cigarettes, with withdrawal; F19.24 Other psychoactive substance dependence with psychoactive substance-induced mood disorder; F32.9 Major depressive disorder, single episode, unspecified; G47.00 Insomnia, unspecified; R94.5 Abnormal results of liver function studies
CPT/HCPCS: 36415; 71046-TC-FY; 80053; 81003; 85027; 86593; 93005; 93010